=== PATIENT | male | born 1980 | race Caucasian/White ===

== ENCOUNTER 2019-02-25 10:34 | Outpatient (CLI) | payer BC ==
--- NOTE | 2019-02-25 15:52 | CT ---
CT ABDOMEN AND PELVIS WITH INTRAVENOUS CONTRAST: HISTORY: Abdominal pain. History of diverticulitis. The patient has been complaining of pain for a few weeks. FINDINGS: ABDOMEN: The lung bases are clear of any infiltrative process. The liver shows suggestion of some fatty change. The spleen is within normal limits in size. The panc reas and gallbladder regions appear unremarkable. The right and left adrenal glands and the right and left kidneys are normal in size. There is no sign ificant periaortic or mesenteric lymphadenopathy. PELVIS: The appendix is normal. Some mild sigmoid diverticulosis but no inflammatory process. IMPRESSION: 1. Mild sigmoid diverticulosis. 2. Suggestion of some mild fatty change to the liver. POS: [facility]
== END 2019-02-25 10:35 | disposition home or self-care (01) ==
LOC: SCSCT 10:34
PROVIDERS: ATTEND Internal Medicine
DX: K57.92 Diverticulitis of intestine, part unspecified, without perforation or abscess without bleeding (principal); K57.30 Diverticulosis of large intestine without perforation or abscess without bleeding
CPT/HCPCS: 74177